=== PATIENT | female | born 1990 | race Caucasian/White ===

== ENCOUNTER 2018-02-03 00:17 | Inpatient (IN) | payer OTHER ==
--- NOTE | 2018-02-03 01:28 | PDOC ---
History of Present Illness - General Exam Limitations: No Limitations - History of Present Illness Initial Comments: 02/03/18 01:29 The patient is a 28 year old female with no significant past medical history who presents to the ED complaining of sudden onset moderate, sharp, crampy RUQ pain that began approximately 5 hours prior to arrival. She also reports one episode of vomiting that was self induced, with no relief of her symptoms. No nausea or diarrhea. No fever or chills. No chest pain or SOB. <Gayle Matthews - Last Filed: 02/03/18 03:53> - General History Source: Patient <Richi Boss - Last Filed: 02/03/18 19:13> - General Chief Complaint: Pain, Acute Stated Complaint: ABD PAIN Time Seen by Provider: 02/03/18 01:25 Past History <aGyle Matthews - Last Filed: 02/03/18 03:53> - Past Medical History COPD: No Other medical history: Pt denies - Suicide/Smoking/Psychosocial Hx Smoking History: Never smoked Have you smoked in the past 12 months: No Information on smoking cessation initiated: No Hx Alcohol Use: No Drug/Substance Use Hx: No Substance Use Type: None <ElielMontserrat banegasan - Last Filed: 02/03/18 19:13> - Past Medical History Allergies/Adverse Reactions: Allergies Allergy/AdvReac Type Severity Reaction Status Date / Time No Known Allergies Allergy Verified 02/03/18 00:35 Home Medications: Ambulatory Orders Acetaminophen [Tylenol .Regular Strength -] 650 mg PO Q6H PRN tablet 02/03/18 Chromium Picolinate 200 mcg PO DAILY 02/03/18 Ibuprofen [Motrin -] 600 mg PO Q6H PRN tablet 02/03/18 Phentermine HCl 30 mg PO AM 02/03/18 Review of Systems - Review of Systems Able to Perform ROS?: Yes Comments:: 02/03/18 01:31 GENERAL/CONSTITUTIONAL: No fever or chills. No weakness. HEAD, EYES, EARS, NOSE AND THROAT: No change in vision. No ear pain or discharge. No sore throat. CARDIOVASCULAR: No chest pain or shortness of breath. RESPIRATORY: No cough, wheezing, or hemoptysis. GASTROINTESTINAL: +RUQ pain. Vomiting x 1 (resolved) No nausea, diarrhea or constipation. GENITOURINARY: No dysuria, frequency, or change in urination. MUSCULOSKELETAL: No joint or muscle swelling or pain. No neck or back pain. SKIN: No rash NEUROLOGIC: No headache, vertigo, loss of consciousness, or change in strength/ sensation. ENDOCRINE: No increased thirst. No abnormal weight change. HEMATOLOGIC/LYMPHATIC: No anemia, easy bleeding, or history of blood clots. ALLERGIC/IMMUNOLOGIC: No hives or skin allergy. <Gayle Matthews - Last Filed: 02/03/18 03:53> *Physical Exam - Vital Signs Last Vital Signs Temp Pulse Resp BP Pulse Ox 98.0 F 91 H 20 143/92 99 02/03/18 00:36 02/03/18 00:36 02/03/18 00:36 02/03/18 00:36 02/03/18 00:36 - Physical Exam Comments: 02/03/18 01:32 GENERAL: Awake, alert, and fully oriented, in no acute distress HEAD: No signs of trauma EYES: PERRLA, EOMI, sclera anicteric, conjunctiva clear ENT: Auricles normal inspection, nares patent. Moist mucosa NECK: Normal ROM, supple, no JVD, or masses LUNGS: Breath sounds equal, clear to auscultation bilaterally. No wheezes, and no crackles HEART: Regular rate and rhythm, normal S1 and S2, no murmurs, rubs or gallops ABDOMEN: +RUQ ttp with negative Perrin's. Soft, normoactive bowel sounds. No guarding, no rebound. No masses EXTREMITIES: Normal range of motion, no edema. No clubbing or cyanosis. No cords, erythema, or tenderness NEUROLOGICAL: Alert and oriented x 3. Moves all extremities. Face is symmetric. SKIN: Warm, Dry, normal turgor, no rashes or lesions noted. <Gayle Matthews - Last Filed: 02/03/18 03:53> - Vital Signs Last Vital Signs Temp Pulse Resp BP Pulse Ox 98.0 F 91 H 20 143/92 99 02/03/18 00:36 02/03/18 00:36 02/03/18 00:36 02/03/18 00:36 02/03/18 00:36 <Richi Boss - Last Filed: 02/03/18 19:13> Heart Score/ECG Review #1 02/03/18 03:54 EKG obtained 3:26. NSR at 76 bpm with sinus arrhythmia. Normal EKG. <Gayle Matthews - Last Filed: 02/03/18 03:53> ED Treatment Course - LABORATORY CBC & Chemistry Diagram: 02/03/18 02:14 02/03/18 02:14 <Gayle Matthews - Last Filed: 02/03/18 03:53> - LABORATORY CBC & Chemistry Diagram: 02/03/18 02:14 02/03/18 02:14 <Richi Boss - Last Filed: 02/03/18 19:13> Medical Decision Making - Medical Decision Making 02/03/18 02:36 US of the RUQ, preliminary reading by Imaging [employer]. Impression: High suspicion for cholecystitis. 02/03/18 02:47 Call placed to patient's PCP, Dr. Reid, . Case discussed with Dr. Ortega, who agreed to admission and requested Dr. Cooper of general surgery for consult. <Gayle Matthews - Last Filed: 02/03/18 03:53> - Medical Decision Making 02/03/18 19:13 Dr. Boss: The scribe's documentation has been prepared under my direction and personally reviewed by me in its entirery. I confirm that the note above accurately reflects all work, treatment, procedures, and medical decision making performed by me. <Richi Boss - Last Filed: 02/03/18 19:13> *DC/Admit/Observation/Transfer - Attestations Scribe Attestion: 02/03/18 01:32 Documentation prepared by Gayle Matthews, acting as medical staff physician for Richi Boss, <Gayle Matthews - Last Filed: 02/03/18 03:53> - Discharge Dispostion Admit: Yes <Richi Boss - Last Filed: 02/03/18 19:13> Diagnosis at time of Disposition: Cholecystitis - Discharge Dispostion Condition at time of disposition: Improved
[2018-02-03] MEDS ORDERED: KETOROLAC TROMETHAMINE 30 MG/1 ML VIAL IVPUSH ONE (01:29)
[2018-02-03] MEDS ORDERED: KETOROLAC TROMETHAMINE 30 MG/1 ML VIAL ONE (02:03)
[2018-02-03 02:28] LABS: BASO % 0.5 % (0-2.0); EOS % 0.9 % (0-4.5); HEMATOCRIT 38.4 % (32.4-45.2); HEMOGLOBIN 13.3 GM/dL (10.7-15.3); LYMPH % 13.5 % (8-40); MCH 30.2 pg (25.7-33.7); MCHC 34.7 g/dl (32.0-36.0); MEAN CELL VOLUME 86.9 fl (80-96); MONO % 6.9 % (3.8-10.2); NEUT % 78.2 % (42.8-82.8); PLATELET COUNT 472 K/MM3 (134-434); RBC 4.42 M/mm3 (3.60-5.2); RDW 12.9 % (11.6-15.6); WHITE BLOOD COUNT 8.7 K/mm3 (4.0-10.0)
[2018-02-03] MEDS ORDERED: METOCLOPRAMIDE HCL INJECTION 10 MG/2 ML VIAL IVPUSH ONE (02:45)
[2018-02-03] MEDS ORDERED: morphine CARPU-JECT 2 MG/1 ML DISP.SYRIN IVPUSH ONE (02:45)
[2018-02-03] MEDS ORDERED: METOCLOPRAMIDE HCL INJECTION 10 MG/2 ML VIAL ONE (03:00)
[2018-02-03] MEDS ORDERED: DEXTROSE 5%-0.45% SALINE 1,000 ML IV SCH (03:00)
[2018-02-03] MEDS ORDERED: MORPHINE SULFATE 10 MG/1 ML *VIAL ONE (03:00)
[2018-02-03 03:04] LABS: ALBUMIN 3.7 g/dl (3.4-5.0); ANION GAP 10 (8-16); BILIRUBIN,TOTAL 0.7 mg/dL (0.2-1.0); BLOOD UREA NITROGEN 11 mg/dL (7-18); CALCIUM 9.3 mg/dL (8.5-10.1); CHLORIDE 102 mmol/L (98-107); CO2 28 mmol/L (21-32); CREATININE 0.7 mg/dL (0.55-1.02); GLUCOSE,RANDOM 111 mg/dL (74-106); MAGNESIUM 2.3 mg/dL (1.8-2.4); SGOT/AST 134 U/L (15-37); SGPT/ALT 93 U/L (12-78); SODIUM 140 mmol/L (136-145); TOT PROT 7.5 g/dl (6.4-8.2)
[2018-02-03 03:05] LABS: ALK PHOS 80 U/L (45-117); LIPASE 289 U/L (73-393)
[2018-02-03 03:37] LABS: URINE APPEARANCE CLOUDY; URINE BILIRUBIN NEGATIVE (NEGATIVE); URINE BLOOD NEGATIVE (NEGATIVE); URINE COLOR YELLOW; URINE GLUCOSE (UA) NEGATIVE (NEGATIVE); URINE KETONE NEGATIVE (NEGATIVE); URINE LEUK ESTERASE NEGATIVE (NEGATIVE); URINE NITRITE NEGATIVE (NEGATIVE); URINE PROTEIN NEGATIVE (NEGATIVE); URINE UROBILINOGEN NEGATIVE mg/dL (0.2-1.0)
[2018-02-03 03:47] LABS: INR 0.97 (0.82-1.09)
[2018-02-03 05:11] VITALS: BMI 32.0
--- NOTE | 2018-02-03 10:21 | CONSULT ---
Consult Consult Specialty:: general surgery Referred by:: Ольга Ortega Reason for Consultation:: abdominal pain - History of Present Illness Chief Complaint: RUQ abdominal pain History of Present Illness: 28 yo female PMH with no significant past medical history who presents to the ED complaining of sudden onset moderate, sharp, crampy RUQ pain that began approximately 5 hours prior to arrival. She also reports one episode of vomiting that was self induced, with no relief of her symptoms. Over the last few months she has had some intermitent similar pain none significant enough to prompt a visit to the hospital. She has tried high protein diet for stewart loss. No nausea or diarrhea. No fever or chills. No chest pain or SOB. She has had no previous abdominal surgery. we were called to assess. - History Source History Provided By: Patient, Medical Record Limitations to Obtaining History: No Limitations - Alcohol/Substance Use Hx Alcohol Use: No - Smoking History Smoking history: Never smoked Have you smoked in the past 12 months: No - Social History History of Recent Travel: No Home Medications - Allergies Allergies/Adverse Reactions: Allergies Allergy/AdvReac Type Severity Reaction Status Date / Time No Known Allergies Allergy Verified 02/03/18 00:35 - Home Medications Home Medications: Ambulatory Orders Chromium Picolinate 200 mcg PO DAILY 02/03/18 Phentermine HCl 30 mg PO AM 02/03/18 Review of Systems - Review of Systems Constitutional: denies: Chills, Fever Eyes: denies: Blurred Vision, Recent Change in Vision HENT: denies: Difficult Swallowing, Throat Pain Neck: denies: Lumps, Pain on Movement, Tenderness Cardiovascular: denies: Chest Pain, Palpitations Respiratory: denies: Cough, SOB Genitourinary: denies: Burning, Dysuria Musculoskeletal: denies: Muscle Pain, Muscle Weakness Integumentary: denies: Lesions, Rash Neurological: denies: Seizure, Syncope Endocrine: denies: Unexplained Weight Gain, Unexplained Weight Loss Hematology/Lymphatic: denies: Easily Bruised, Excessive Bleeding Psychiatric: denies: Anxiety, Depression Physical Exam Vital Signs: Vital Signs Temperature 98.1 F 02/03/18 08:30 Pulse Rate 79 02/03/18 08:30 Respiratory Rate 18 02/03/18 08:30 Blood Pressure 112/60 02/03/18 08:30 O2 Sat by Pulse Oximetry (%) 100 02/03/18 04:47 Vital Signs Period Temp Pulse Resp BP Sys/Bass Pulse Ox Last 24 Hr 98.0 F-99.2 F 79-97 18-20 112-143/60-92 99-100 Constitutional: Yes: No Distress, Calm Eyes: Yes: Conjunctiva Clear, EOM Intact HENT: Yes: Atraumatic, Normocephalic Neck: Yes: Supple, Trachea Midline Cardiovascular: Yes: Regular Rate and Rhythm, S1, S2 Respiratory: Yes: Regular, CTA Bilaterally Gastrointestinal: Yes: Normal Bowel Sounds, Soft, Abdomen, Obese, Tenderness ( RUQ and positive ontiveros's sign), Tenderness, Epigastrium. No: Tenderness, Rebound, Vomiting ...Rectal Exam: Yes: Deferred Extremities: No: Cold, Cool Edema: No Peripheral Pulses WNL: Yes Integumentary: No: Jaundice, Rash Neurological: Yes: Alert, Oriented Psychiatric: Yes: Alert, Oriented Labs: CBC, BMP 02/03/18 02:14 02/03/18 02:14 Imaging - Results Ultrasound: Report Reviewed, Image Reviewed (Cholelithiasis with GB wall thickening) Problem List - Problems (1) Cholecystitis Assessment/Plan: 28 yo female PMH obesity BMI 32 presents with RUQ abdominal pain, early acute cholecystitis on ultrasound, positive ontiveros on exam NPO and IVF hydration IV antibiotics OR for Laporascopic Cholecystectomy possible open cholecystectomy - Discussed with patient risks, benefits and alternatives of laparoscopic possible open cholecystectomy, including but not limited to bleeding, infection, injury to adjacent structures, leak or injury, intraabdominal abscess, need for further procedures, ; alternatives include antibiotics, delayed or no surgery - risks of this include failure of nonoperative therapy, perforation, sepsis, recurrence, .Patient desires to proceed with operation - will take to OR for above. Informed consent signed for same. Thank you for the opportunity to participate in the care of this patient. Code(s): K81.9 - CHOLECYSTITIS, UNSPECIFIED (2) Right upper quadrant abdominal pain Code(s): R10.11 - RIGHT UPPER QUADRANT PAIN (3) Obesity (BMI 30.0-34.9) Code(s): E66.9 - OBESITY, UNSPECIFIED (4) Transaminitis Code(s): R74.0 - NONSPEC ELEV OF LEVELS OF TRANSAMNS & LACTIC ACID DEHYDRGNSE
[2018-02-03] MEDS ORDERED: morphine SULFATE 4 MG/ML VIAL IVPUSH PRN (10:32)
[2018-02-03] MEDS ORDERED: ONDANSETRON 4 MG/2 ML VIAL IVPUSH PRN ×3 (10:32→13:17)
[2018-02-03] MEDS ORDERED: PANTOPRAZOLE 40 MG TABLET (FP) PO SCH (10:45)
[2018-02-03] MEDS ORDERED: BUPIVACAINE HCL/PF 0.5% (5MG/ML) 10 ML VIAL ONE (10:45)
--- NOTE | 2018-02-03 10:51 | EKG ---
Test Reason : Blood Pressure : / mmHG Vent. Rate : 072 BPM Atrial Rate : 072 BPM P-R Int : 120 ms QRS Dur : 088 ms QT Int : 362 ms P-R-T Axes : 062 063 043 degrees QTc Int : 396 ms NORMAL SINUS RHYTHM WITH SINUS ARRHYTHMIA NORMAL ECG NO PREVIOUS ECGS AVAILABLE Confirmed by BETH CACERES MD ([id number]) on 02/03/2018 10:51:36 AM Referred By: Confirmed By:BETH CACERES MD
[2018-02-03] MEDS ORDERED: cefOXitin SODIUM 2 GM VIAL (RESTRICTED TO ID) IVPB ONE ×2 (10:54→11:57)
[2018-02-03] MEDS ORDERED: CEFOXITIN SODIUM 2 GM in DEXTROSE 5%-WATER - 100 ML IVPB ONE (11:00)
[2018-02-03] MEDS ORDERED: MIDAZOLAM HCL 2 MG/2 ML SINGLE DOSE VIAL ONE (11:24)
[2018-02-03] MEDS ORDERED: PROPOFOL 20 ML ONE (11:24)
[2018-02-03] MEDS ORDERED: ROCURONIUM BROMIDE 50 MG/5 ML VIAL ONE (11:24)
[2018-02-03] MEDS ORDERED: fentaNYL CITRATE 250 MCG/5 ML VIAL ONE (11:24)
[2018-02-03] MEDS ORDERED: CEFOXITIN SODIUM 1 GM IVPB ONE (11:31)
[2018-02-03] MEDS ORDERED: DEXAMETHASONE SOD PHOSPHATE 4 MG/1 ML VIAL ONE (12:09)
[2018-02-03] MEDS ORDERED: BUPIVACAINE HCL/PF 0.5% (5MG/ML) 10 ML VIAL IJ ONE ×2 (12:15→12:26)
[2018-02-03] MEDS ORDERED: NEOSTIGMINE METHYLSULFATE 0.5 MG/ML - 10 ML MDV ONE ×2 (12:24→12:37)
[2018-02-03] MEDS ORDERED: GLYCOPYRROLATE 0.2 MG/1 ML VIAL ONE (12:25)
--- NOTE | 2018-02-03 12:44 | OP ---
Operative Note - Note: Operative Date: 02/03/18 Pre-Operative Diagnosis: Acute cholecystitis Operation: Laparoscopic Cholecystectomy Findings: gallbladder with stone, minimal inflammatory changes Post-Operative Diagnosis: Same as Pre-op Surgeon: Bebeto Cooper Milker Machine: Juan Blanc Anesthesiologist/NECK PINNER: Christiana Sheridan Anesthesia: General, Local (0.5% marcaine ) Specimens Removed: gallbladder and stones Estimated Blood Loss (mls): 10 Drains & Tubes with Location: none Fluid Volume Replaced (mls): 900 Operative Report Dictated: Yes
[2018-02-03] MEDS ORDERED: ACETAMINOPHEN 325 MG TABLET (FP) PO PRN ×2 (12:48→13:17)
[2018-02-03] MEDS ORDERED: IBUPROFEN 600 MG TABLET (FP) PO PRN ×2 (12:48→13:17)
[2018-02-03] MEDS ORDERED: LACTATED RINGERS SOLUTION 1,000 ML IV SCH (13:00)
--- NOTE | 2018-02-03 13:12 | HP ---
Admitting History and Physical - Primary Care Physician PCP: Ольга Ortega - Admission Chief Complaint: Abdominal Pain History of Present Illness: 28 yo female PMH Obesity(BMI 32) on unprescribed diet pills presented to the ED complaining of sudden onset moderate, sharp, crampy RUQ pain that began approximately 5 hours prior to arrival. It was after a meal. She also reports one episode of vomiting that was self induced, with no relief of her symptoms. Over the last few months she has had some intermitent similar pain none significant enough to prompt a visit to the hospital. She has tried high protein diet for stewart loss. No nausea or diarrhea. No fever or chills. No chest pain or SOB. She has had no previous abdominal surgery. we were called to assess. History Source: Patient, Medical Record Limitations to Obtaining History: No Limitations - Past Medical History Additional Past Medical History: obesity - Smoking History Smoking history: Never smoked Have you smoked in the past 12 months: No - Alcohol/Substance Use Hx Alcohol Use: No - Social History History of Recent Travel: No Home Medications - Allergies Allergies/Adverse Reactions: Allergies Allergy/AdvReac Type Severity Reaction Status Date / Time No Known Allergies Allergy Verified 02/03/18 00:35 - Home Medications Home Medications: Ambulatory Orders Acetaminophen [Tylenol .Regular Strength -] 650 mg PO Q6H PRN tablet 02/03/18 Chromium Picolinate 200 mcg PO DAILY 02/03/18 Ibuprofen [Motrin -] 600 mg PO Q6H PRN tablet 02/03/18 Phentermine HCl 30 mg PO AM 02/03/18 Review of Systems - Review of Systems Constitutional: denies: Chills, Fever Eyes: denies: Blurred Vision, Recent Change in Vision HENT: denies: Difficult Swallowing, Throat Pain Neck: denies: Decreased ROM, Tenderness Cardiovascular: denies: Chest Pain, Palpitations Respiratory: denies: Cough, SOB Gastrointestinal: reports: Abdominal Pain, Bloating, Indigestion, Vomiting. denies: Diarrhea Genitourinary: denies: Discharge, Dysuria Breasts: reports: No Symptoms Reported. denies: Pain Integumentary: denies: Lesions, Rash Neurological: denies: Change in LOC, Seizure, Syncope, Tremors Endocrine: denies: Unexplained Weight Gain, Unexplained Weight Loss Hematology/Lymphatic: denies: Easily Bruised, Excessive Bleeding Psychiatric: denies: Anxiety, Depression Physical Examination Vital Signs: Vital Signs Temperature 98.1 F 02/03/18 08:30 Pulse Rate 79 02/03/18 08:30 Respiratory Rate 18 02/03/18 08:30 Blood Pressure 112/60 02/03/18 08:30 O2 Sat by Pulse Oximetry (%) 100 02/03/18 04:47 Vital Signs Period Temp Pulse Resp BP Sys/Bass Pulse Ox Last 24 Hr 98.0 F-99.2 F 79-97 18-20 112-143/60-92 99-100 Intake & Output 02/02/18 02/03/18 02/03/18 23:59 07:59 15:59 Intake Total 200 900 Output Total 10 Balance 200 890 Weight 164 lb 0.5 oz Intake: IV 200 900 D5-1/2Ns - 1,000 ml @ 100 200 mls/hr IV ASDIR TARIQ Rx#: [id number] Output: Estimated Blood Loss 10 Other: Voiding Method Toilet Toilet Height 5 ft Body Mass Index (BMI) 32.0 Weight Measurement Method Est/Stated by Patient Constitutional: Yes: No Distress, Calm, Obese Eyes: Yes: Conjunctiva Clear, EOM Intact HENT: Yes: Atraumatic, Normocephalic Neck: Yes: Supple, Trachea Midline Cardiovascular: Yes: Regular Rate and Rhythm, S1, S2. No: Murmur Respiratory: Yes: Regular, CTA Bilaterally Gastrointestinal: Yes: Normal Bowel Sounds, Soft, Abdomen, Obese, Tenderness ( RUQ, +ontiveros's sign). No: Tenderness, Epigastrium, Tenderness, Rebound, Vomiting ...Rectal Exam: Yes: Deferred Renal/: No: CVA Tenderness - Left, CVA Tenderness - Right Edema: No Peripheral Pulses WNL: Yes Peripheral Pulses: Left Doralis Pedis: 2+, Right Dorsalis Pedis: 2+ Integumentary: No: Jaundice, Rash Neurological: Yes: Alert, Oriented Psychiatric: Yes: Alert, Oriented Labs: CBC, BMP 02/03/18 02:14 02/03/18 02:14 Imaging - Results Ultrasound: Report Reviewed, Image Reviewed (cholelithiasis with gallbladder wall thickeing) Problem List - Problems (1) Cholecystitis Assessment/Plan: 28 yo female [facility] obesity BMI 32 presents with RUQ abdominal pain, early acute cholecystitis on ultrasound, positive ontiveros on exam NPO and IVF hydration IV antibiotics OR for Laporascopic Cholecystectomy possible open cholecystectomy - Discussed with patient risks, benefits and alternatives of laparoscopic possible open cholecystectomy, including but not limited to bleeding, infection, injury to adjacent structures, leak or injury, intraabdominal abscess, need for further procedures, ; alternatives include antibiotics, delayed or no surgery - risks of this include failure of nonoperative therapy, perforation, sepsis, recurrence, .Patient desires to proceed with operation - will take to OR for above. Informed consent signed for same. Thank you for the opportunity to participate in the care of this patient. Code(s): K81.9 - CHOLECYSTITIS, UNSPECIFIED (2) Right upper quadrant abdominal pain Code(s): R10.11 - RIGHT UPPER QUADRANT PAIN (3) Obesity (BMI 30.0-34.9) Code(s): E66.9 - OBESITY, UNSPECIFIED (4) Transaminitis Code(s): R74.0 - NONSPEC ELEV OF LEVELS OF TRANSAMNS & LACTIC ACID DEHYDRGNSE
--- NOTE | 2018-02-03 13:21 | DS ---
Physical Examination Vital Signs: Vital Signs Temperature 98.1 F 02/03/18 08:30 Pulse Rate 79 02/03/18 08:30 Respiratory Rate 18 02/03/18 08:30 Blood Pressure 112/60 02/03/18 08:30 O2 Sat by Pulse Oximetry (%) 100 02/03/18 04:47 Vital Signs Period Temp Pulse Resp BP Sys/Bass Pulse Ox Last 24 Hr 98.0 F-99.2 F 79-97 18-20 112-143/60-92 99-100 Constitutional: Yes: No Distress, Calm, Obese Eyes: Yes: Conjunctiva Clear, EOM Intact HENT: Yes: Atraumatic, Normocephalic Neck: Yes: Supple, Trachea Midline Cardiovascular: Yes: Regular Rate and Rhythm, S1, S2 Respiratory: Yes: Regular, CTA Bilaterally Gastrointestinal: Yes: Normal Bowel Sounds, Soft Extremities: No: Cool, Cyanosis Edema: No Peripheral Pulses WNL: Yes Peripheral Pulses: Left Doralis Pedis: 2+, Right Dorsalis Pedis: 2+ Integumentary: Yes: Body Piercing Wound/Incision: Yes: Clean/Dry, Well Approximated, Open to air, Other (dermabond ) Neurological: Yes: Alert, Oriented Psychiatric: Yes: Alert, Oriented Labs: CBC, BMP 02/03/18 02:14 02/03/18 02:14 Discharge Summary Reason For Visit: CHOLECYSTITIS Current Active Problems Cholecystitis (Acute) Obesity (BMI 30.0-34.9) (Acute) Right upper quadrant abdominal pain (Acute) Transaminitis (Acute) Procedures: Principal: Laparoscopic Cholecystectomy Hospital Course: Presented with abdominal pain for several hours, ultrasound showed signs of cholecystitis, WBC 9.0 and low grade temp 99. Positive ontiveros's sign of exam. She was taken for an uneventful laparoscopic cholecystectomy. She was stable throughout and postoperatively. She was discharged with a follow-up plan. Condition: Improved - Instructions Diet, Activity, Other Instructions: Postoperative instructions: You had a laparoscopic cholecystectomy on 02/03/[address] Bebeto Cooper of [facility]. Activity: Resume your usual activities gradually, but no heavy exertion or lifting more than 10-15 pounds for 1 month. A surgical glue closure was made to you skin. You may shower daily starting then, just pat the incision areas dry. Eat lightly at first, but advance to your usual diet as tolerated. Pain: For pain, you may use and alternate Tylenol (acetaminophen) and/or ibuprofen every 6 hours each as needed; this means that you can take one OR the other at 3-hour intervals. If you are prescribed a Tylenol/narcotic combination for severe pain, use it instead of plain Tylenol as needed and switch back when your pain starts decreasing. Do not take more than 4000mg of acetaminophen in a day. Take medications as prescribed or indicated on the labeling. Follow-up: Call Dr. Cooper' office at [phone] to make your postop appointment (Thursday ~2 weeks after surgery). Clinic is held in the Diagnostic Center on the first floor of [facility]. Call the office if you have: * increasing pain not responsive to pain medication * fever of 101F or higher * vomiting * unusual or increasing bleeding or drainage from wounds * increasing redness or swelling at wound sites * inability to urinate Also, see your primary medical doctor within 1-2 weeks. Referrals: Fernando Reid [Primary Care Provider] - Disposition: HOME - Home Medications Comprehensive Discharge Medication List: Ambulatory Orders Acetaminophen [Tylenol .Regular Strength -] 650 mg PO Q6H PRN tablet 02/03/18 Chromium Picolinate 200 mcg PO DAILY 02/03/18 Ibuprofen [Motrin -] 600 mg PO Q6H PRN tablet 02/03/18 Phentermine HCl 30 mg PO AM 02/03/18
[2018-02-03] MEDS ORDERED: IBUPROFEN 800 MG/8 ML IJ IVPB ONE ×3 (13:42→14:00)
[2018-02-03] MEDS ORDERED: ACETAMINOPHEN INJECTION 100 ML IVPB ONE (13:42)
[2018-02-03] MEDS ORDERED: ACETAMINOPHEN 1000 MG/100 ML VIAL (NON FORMULARY) IVPB ONE (13:43)
[2018-02-03] MEDS: morphine SULFATE 4 MG/ML VIAL IVPUSH PRN (16:01)
[2018-02-04] MEDS: morphine SULFATE 4 MG/ML VIAL IVPUSH PRN (01:28)
--- NOTE | 2018-02-04 08:07 | PN ---
Progress Note, Physician Chief Complaint: POD #1 s/p lap mirna - Current Medication List Current Medications: Active Medications Acetaminophen (Tylenol -) 650 mg PO Q6H PRN PRN Reason: FEVER Last Admin: 02/03/18 13:45 Dose: 650 mg Ibuprofen (Motrin -) 600 mg PO Q6H PRN PRN Reason: PAIN Morphine Sulfate (Morphine Sulfate) 4 mg IVPUSH Q6H PRN PRN Reason: PAIN LEVEL 6-10 Last Admin: 02/04/18 01:28 Dose: 4 mg Ondansetron HCl (Zofran Injection) 4 mg IVPUSH Q6H PRN PRN Reason: NAUSEA AND/OR VOMITING Ondansetron HCl (Zofran Injection) 4 mg IVPUSH Q6H PRN PRN Reason: NAUSEA Pantoprazole Sodium (Protonix -) 40 mg PO DAILY TARIQ - Objective Vital Signs: Vital Signs Temperature 98.3 F 02/04/18 06:00 Pulse Rate 61 02/04/18 06:00 Respiratory Rate 18 02/04/18 06:00 Blood Pressure 129/64 02/04/18 06:00 O2 Sat by Pulse Oximetry (%) 100 02/03/18 14:32 Labs: CBC, BMP 02/03/18 02:14 02/03/18 02:14 INR, PTT INR 0.97 (0.82-1.09) 02/03/18 03:20 Assessment/Plan Doing well, no anesthetic issues. Likely discharge today
[2018-02-04] MEDS ORDERED: PANTOPRAZOLE 40 MG TABLET (FP) PO SCH (10:00)
[2018-02-04 10:43] VITALS: BP 112/70; PULSE 79; TEMP 99.3
--- NOTE | 2018-02-04 11:12 | DS ---
Physical Examination Vital Signs: Vital Signs Temperature 99.3 F 02/04/18 10:00 Pulse Rate 79 02/04/18 10:00 Respiratory Rate 18 02/04/18 10:00 Blood Pressure 112/70 02/04/18 10:00 O2 Sat by Pulse Oximetry (%) 100 02/03/18 14:32 Constitutional: Yes: Well Nourished Eyes: Yes: WNL HENT: Yes: WNL Neck: Yes: WNL Cardiovascular: Yes: WNL Respiratory: Yes: WNL Gastrointestinal: Yes: Normal Bowel Sounds, Soft Renal/: Yes: WNL Musculoskeletal: Yes: WNL Extremities: Yes: WNL Edema: No Peripheral Pulses WNL: Yes Integumentary: Yes: WNL Neurological: Yes: WNL (Pt to be discharged home today.) ...Motor Strength: WNL Labs: CBC, BMP 02/03/18 02:14 02/03/18 02:14 Discharge Summary Reason For Visit: CHOLECYSTITIS Current Active Problems Cholecystitis (Acute) Obesity (BMI 30.0-34.9) (Acute) Right upper quadrant abdominal pain (Acute) Transaminitis (Acute) Condition: Improved - Instructions Diet, Activity, Other Instructions: Postoperative instructions: You had a laparoscopic cholecystectomy on 02/03/[address] Bebeto Cooper of [facility]. Activity: Resume your usual activities gradually, but no heavy exertion or lifting more than 10-15 pounds for 1 month. A surgical glue closure was made to you skin. You may shower daily starting then, just pat the incision areas dry. Eat lightly at first, but advance to your usual diet as tolerated. Pain: For pain, you may use and alternate Tylenol (acetaminophen) and/or ibuprofen every 6 hours each as needed; this means that you can take one OR the other at 3-hour intervals. If you are prescribed a Tylenol/narcotic combination for severe pain, use it instead of plain Tylenol as needed and switch back when your pain starts decreasing. Do not take more than 4000mg of acetaminophen in a day. Take medications as prescribed or indicated on the labeling. Follow-up: Call Dr. Cooper' office at [phone] to make your postop appointment (Thursday ~2 weeks after surgery). Clinic is held in the Diagnostic Center on the first floor of [facility]. Call the office if you have: * increasing pain not responsive to pain medication * fever of 101F or higher * vomiting * unusual or increasing bleeding or drainage from wounds * increasing redness or swelling at wound sites * inability to urinate Also, see your primary medical doctor within 1-2 weeks. Referrals: Fernando Reid [Primary Care Provider] - Disposition: HOME - Home Medications Comprehensive Discharge Medication List: Ambulatory Orders Acetaminophen [Tylenol .Regular Strength -] 650 mg PO Q6H PRN tablet 02/03/18 Chromium Picolinate 200 mcg PO DAILY 02/03/18 Ibuprofen [Motrin -] 600 mg PO Q6H PRN tablet 02/03/18 Phentermine HCl 30 mg PO AM 02/03/18
--- NOTE | 2018-02-05 07:40 | SURG ---
Surgery [place] [employer] Note [place] [employer]er: Juan Blanc PA-C Date of Service: 02/03/18 Diagnosis: Acute cholecystitis Procedure: Laproscopic cholecystectomy I was present for the entirety of the operative procedure. For further detail, please refer to operative report. Visit type - Case Type Case Type: ED Admission - Emergency Emergency Visit: Yes ED Registration Date: 02/03/18 Care time: The patient presented to the Emergency Department on the above date and was hospitalized for further evaluation of their emergent condition. - New patient This patient is new to me today: Yes Date on this admission: 02/05/18
--- NOTE | 2018-02-05 13:55 | PATH ---
Surgical Pathology Report Patient Name: CHERI NICOLAS Med. Rec. #: [id number] /Age/Gender: 1990 (Age: 28) / F Account: [id number] Location: [address] [place] [address]/[facility] Taken: 02/03/2018 Received: 02/04/2018 Reported: 02/05/2018 Physicians: MD Bebeto Perez M.D. Specimen(s) Received GALLBLADDER AND STONES Clinical History Cholecystitis Final Diagnosis GALLBLADDER, LAPAROSCOPIC CHOLECYSTECTOMY: CHRONIC CHOLECYSTITIS WITH CHOLELITHIASIS. ONE BENIGN PERIDUCTAL LYMPH NODE (0/1). Electronically Signed Sahara Woo M.D. Gross Description Received in formalin, labeled "gallbladder," is a 7.3 x 2.3 x 2.0 cm. gallbladder with a 0.2 cm. in length portion of cystic duct attached. There is a 0.5 cm in greatest dimension periductal lymph node present. The outer surface is oliver-marmolejo and varies from smooth to shaggy. The lumen contains green, tenacious bile as well as multiple yellow choleliths ranging from 0.1-0.3 cm in greatest dimension. The mucosa is green and velvety. The wall of the gallbladder averages 0.1 cm. in thickness. Party Demonstrator sections are submitted in one cassette. 02/04/201802/04/2018
--- NOTE | 2018-02-06 12:18 | OP ---
DATE OF OPERATION: 02/03/2018 PREOPERATIVE DIAGNOSIS: Acute cholecystitis. POSTOPERATIVE DIAGNOSIS: Acute cholecystitis. PROCEDURE: Laparoscopic cholecystectomy. ATTENDING SURGEON: Bebeto Cooper MD SENIOR JAVA DEVELOPER: ASHUTOSH Mcduffie ANESTHESIOLOGIST: Christiana Sheridan MD ANESTHESIA TYPE: General with local anesthetic, local consisted of 0.5% Marcaine, a total of 10 mL given in an area block fashion at the port sites. ESTIMATED BLOOD LOSS: 10 mL. DRAINS: None. INTRAVENOUS FLUID: Crystalloid, 900 mL. BRIEF FINDINGS: Gallbladder with stones, minimal inflammatory changes, sent for final pathologic diagnosis. INDICATIONS: Patient is a 28-year-old female presenting with right upper quadrant pain for a period of 1 day after closely following a meal. She had a sonogram that showed gallbladder wall thickening, cholelithiasis. She had no white count, but did have a low-grade fever of 99 and significant pain as well as a positive [place] on exam. She was counseled regarding the need for laparoscopic cholecystectomy, possible open. She signed informed consent to that effect after being explained the risks, benefits, and alternatives of surgical procedure proposed, and she was taken to procedure. DESCRIPTION OF PROCEDURE: The patient was brought to the operating room, placed in supine position on the operating table with the right arm tucked. The patient then had lower extremity SCDs placed. She received intravenous antibiotics in the form of cefoxitin 2 g by weight. Preoperatively, she was induced with general anesthesia, endotracheally intubated without incident. At which point, we proceeded then with sterile prep of the anterior abdominal wall. She was blocked into a normal surgical field. A formal time-out was completed identifying the operative site and procedure. With all parties in agreement, we proceeded first with elevating the abdominal wall at the umbilicus with towel clamps and inserting a Veress needle after a small [place] incision was made in the skin with a 15 blade scalpel. It was deepened and widened through subcutaneous tissue bluntly. At which point, a Veress needle was installed, and a pneumoperitoneum was established to 15 mmHg. Prior to establishing a pneumoperitoneum, care was taken to do a saline drop test with the Veress needle. After the pneumoperitoneum was established, the Veress needle was removed. A 5-mm trocar was inserted just in the supraumbilical area at the denver incision, and confirming the pneumoperitoneum was intraabdominal, we proceeded with transferring the gas and inspecting the injection site. There appeared to be no trauma, minimal soilage of the abdominal cavity. There was some yellow free fluid. On inspection of the abdominal viscera, the gallbladder appeared relatively collapsed with minimal inflammatory changes. There was some gallbladder wall thickening. Additional operative trocar sites were placed at the xiphisternum. Size 11-mm atraumatic trocar was placed at that site. Under direct visualization, skin incision was made with a 15 blade scalpel, and then, the trocar was inserted just to the right of the falciform ligament. We then installed additional two 5-mm ports in the right abdomen to allow for retraction of the gallbladder. The gallbladder was grasped at its dome and reflected cranially to allow for exposure of the infundibulum. The infundibulum was grasped as well and retracted towards the right side of the abdomen. From the operative port at the xiphisternum, we proceeded then with dissection of the cystic artery and duct of the gallbladder. Planes were developed using a [place] dissector to identify clearly the structures. The critical view was identified with a cystic artery and cystic duct both identified. They were controlled with 5-mm endoclips. The endoclips were placed 2 onto the remaining side and 1 into the specimen side, and they were divided with EndoShears. Once they were divided, we proceeded then with the L-hook to divide and elevate the gallbladder from the hepatic plate. It was dissected without incident without any bile spillage. The site was irrigated with a small amount of saline irrigation. The gallbladder was then retrieved from the xiphisternum port using 10-mm EndoCatch bag. Without incident, the pneumoperitoneum was reestablished. The sites were inspected. There appeared to be no blood loss, and there was minimal hemostasis. A small amount of clots that were in the surgical field from dissection were suctioned from the abdomen. The patient was kept in neutral and level position, and once abdominal viscera was returned to anatomic position, the patient had the trocars removed under direct visualization. There appeared to be no intraabdominal hemorrhage. We then proceeded with removal of the remaining ports and relief of the pneumoperitoneum. The pneumoperitoneum was relieved. The trocar sites were repaired in interrupted fashion with 4-0 Vicryl at the small sites, and the large site, a running subcuticular 4-0 Vicryl. The skin was then cleaned, and Dermabond was used to approximate the skin edges. The patient was juhi throughout the procedure. Counts were correct. MD YENNY Mattson/[id number]
== END 2018-02-04 11:16 | disposition home or self-care (01) | DRG 419 ==
LOC: JER 00:17 → JERBED 02:44 → J5S 04:43
PROVIDERS: ADMIT Family Medicine; ATTEND Family Medicine
PROC: 0FT44ZZ Resection of Gallbladder, Percutaneous Endoscopic Approach (ICD-10-PCS; principal; 2018-02-03 11:30)
DX: K80.00 Calculus of gallbladder with acute cholecystitis without obstruction (principal); E66.9 Obesity, unspecified; Z68.30 Body mass index [BMI] 30.0-30.9, adult; R74.0 Nonspecific elevation of levels of transaminase and lactic acid dehydrogenase [LDH]
CPT/HCPCS: 36415; 76705-TC; 80053; 81003; 83690; 83735; 84703; 85025; 85610; 86850; 86900; 86901; 87040; 87086; 93005; 93010; 99285-25

== ENCOUNTER 2023-09-21 05:03 | Day surgery (SDC) | payer OTHER ==
[2023-09-17 09:17] VITALS: BMI 38.9
[~2023-09-21 05:03] MED LIST: FERRIC SUBSULFATE 500 ML BOTTLE TP ONE; ceFAZolin SODIUM 1 GM VIAL IVPB ONE
[2023-09-21] MEDS ORDERED: ceFAZolin SODIUM 1 GM VIAL IVPB ONE (11:22)
[2023-09-21] MEDS ORDERED: PROPOFOL 40 ML ONE (13:23)
[2023-09-21] MEDS ORDERED: FENTANYL CITRATE/PF 50 MCG/ML VIAL ONE (13:23)
[2023-09-21] MEDS ORDERED: IODINE/POTASSIUM IODIDE 5%/10% 14 ML BOTTLE NR ONE (13:46)
[2023-09-21] MEDS ORDERED: LIDOCAINE 1%/EPI 1:100000 (20 ML MULTI DOSE VIAL) IJ ONE (13:48)
[2023-09-21] MEDS ORDERED: FERRIC SUBSULFATE 500 ML BOTTLE TP ONE (14:00)
[2023-09-21] MEDS ORDERED: KETOROLAC TROMETHAMINE 30 MG/1 ML VIAL ONE (14:08)
[2023-09-21] MEDS ORDERED: ONDANSETRON 4 MG/2 ML VIAL ONE (14:08)
[2023-09-21] MEDS ORDERED: DEXAMETHASONE SOD PHOSPHATE 4 MG/1 ML VIAL ONE (14:08)
[2023-09-21] MEDS ORDERED: oxyCODONE HCL 5 MG TABLET PO PRN (14:12)
[2023-09-21] MEDS ORDERED: ONDANSETRON 4 MG/2 ML VIAL IVPUSH PRN (14:12)
[2023-09-21] MEDS ORDERED: LACTATED RINGERS SOLUTION 1,000 ML IV SCH (14:15)
[2023-09-21 15:39] VITALS: RESP 20
[2023-09-21 17:00] VITALS: BP 120/78; PULSE 78; TEMP 98
== END 2023-09-21 16:30 | disposition home or self-care (01) ==
LOC: JASU-SURG 05:03
PROVIDERS: ATTEND Obstetrics & Gynecology
PROC: 0UBC7ZX Excision of Cervix, Via Natural or Artificial Opening, Diagnostic (ICD-10-PCS; principal; 2023-09-21 12:00)
DX: D06.7 Carcinoma in situ of other parts of cervix (principal)
CPT/HCPCS: 81025; 88305-TC; 88307-TC; 88341-TC; 88342-TC; 94760